=== PATIENT | male | born 1960 | race Caucasian/White ===

== ENCOUNTER 2020-04-23 11:18 | Inpatient (IN) | payer OTHER, SELFPAY ==
--- NOTE | ~2020-04-23 | US_ITS ---
EXAMINATION: US renal BI EXAM DATE: 04/25/2020 09:40 INDICATION: Acute kidney injury. TECHNIQUE: Multiple grayscale and Doppler images of the kidneys were obtained (by a technologist who performed the scan) and subsequently reviewed. Comparison is made to prior examination from 05/04/2019 . FINDINGS: Right kidney: There is normal contour and echogenicity. It measures 11.1 x 5.0 x 5.1 centimeters. T here are no focal renal lesions identified. There is no hydronephrosis. Left kidney: There is normal contour and echogenicity. It measures 11.5 x 4.6 x 7.1 centimeters. Th ere are no focal renal lesions identified. There is no hydronephrosis. Bladder unremarkable. IMPRESSION: 1. Sonographically unremarkable kidneys. Reviewed, dictated and finalized at location B. PLASTERER
--- NOTE | ~2020-04-23 | XR_ITS ---
EXAMINATION: XR foot RT min 3V DATE: 04/23/2020 12:16 INDICATION: Right foot cellulitis. Diabetes. TECHNIQUE: 4 views of right foot were obtained. COMPARISON: None. FINDINGS: Bone alignment is normal. No fracture. There is soft tissue loss at the tip of the second d igit. There may be exposed bone. There are no erosions of bone to suggest osteomyelitis. There is mil d osteoarthritis of first metatarsophalangeal joint and some of the interphalangeal joints. There are enthesophytes at the posterior and plantar aspects of calcaneal tuberosity. IMPRESSION: 1. No specific evidence of osteomyelitis. Reviewed, dictated and finalized at location A. TO INSPECTOR
[2020-04-23 11:29] VITALS: BP 125/82; PULSE 107; RESP 19; TEMP 36.6; O2SAT 100
--- NOTE | 2020-04-23 12:02 | ECG_ITS ---
Measurements Intervals [place] Rate: 109 P: 44 W[place]: 142 QRS: -2 QRSD: 94 T: 31 QT: 313 QTc: 422 Interpretive Statements SINUS TACHYCARDIA BASELINE ARTIFACT- I, II, III, AVR, AVL, AVF, V4 ABNORMAL ECG Electronically Signed On 04-23-2020 13:26:39 GAS ATTENDANT by Korey Crawford D.O.
--- NOTE | 2020-04-23 12:02 | ED.GENADULT ---
HPI - General Adult General Chief complaint: Wound/Laceration Stated complaint: Needs Antibiotics for Foot Time Seen by Provider: 04/23/20 11:34 Source: patient History of Present Illness HPI narrative: Patient is a 59 y/o male complaining of moderate right foot redness starting this morning. There is no alleviating or exacerbating factor. He has no fever or chill. He has no pain. He states that he has neuropathy and does not have sensation in that foot. Of note, he had dry gangrene of right 2nd toes for least last 2 month following toe nail removal. He follows with Dr. Neal (lan support specialist). He has also seen a vascular surgeon at [facility] for right leg bypass surgery schedule for 04/30/20. Related Data Home Medications Medication Instructions Recorded Confirmed aspirin 81 mg tablet,delayed 81 mg PO DAILY 04/25/19 04/24/20 release Xarelto 2.5 mg PO BID 04/24/20 04/24/20 amlodipine 5 mg PO DAILY 04/24/20 04/24/20 linagliptin-metformin [Jentadueto] 1 tablet PO BID 04/24/20 04/24/20 Allergies Allergy/AdvReac Type Severity Reaction Status Date / Time No Known Allergies Allergy Verified 02/27/20 09:15 Review of Systems Constitutional: Constitutional: Denies chills, Denies fever(s), Denies headache(s) and Denies weakness Eyes: Eyes: Denies blurry vision ENT: Denies headache(s) and Denies neck pain Cardiovascular: Cardiovascular: Denies chest pain and Denies dyspnea Respiratory: Respiratory: Denies cough and Denies dyspnea Gastrointestinal: Gastrointestinal: Denies abdominal pain, Denies diarrhea, Denies nausea and Denies vomiting Genitourinary: Genitourinary: Denies hematuria and Denies dysuria Musculoskeletal: Musculoskeletal: Denies back pain and Denies neck pain Integumentary/Breasts: Skin/Breast: Reports erythema (right foot) Neurologic: Denies headache(s) and Denies weakness [facility] Past Medical History Medical History (Updated 04/24/20 @ 03:52 by Gerard Grove MD) Diabetes mellitus PAD (peripheral artery disease) Thrombocytopenia Surgical History Surgical History (Updated 04/24/20 @ 03:53 by Gerard Grove MD) History of amputation of left lower extremity Family History Family History (Updated 04/24/20 @ 03:48 by Gerard Grove MD) Other Diabetes mellitus Social History Social History Smoking packs per day: 1 Smoking cigarettes per day: 20.0 Years smoked: 40 Smoking pack-years: 40.00 Smoking status: Former smoker Second hand tobacco smoke exposure: No Alcohol intake: never Substance use: never Gender identity (if verbalized by the patient): Male Sexual Orientation (if Verbalized by the Patient): Straight or Heterosexual Spiritual care concerns: No Exam Const: General: no acute distress and well developed Orientation/consciousness: oriented to person, oriented to place, oriented to time and patient oriented x3 HENMT: Head: normocephalic Ears: external ears normal General nose exam: Normal external nose present Eyes: General: appearance normal, both eyes and all related structures Conjunctivae: conjunctivae normal Neck: Neck: normal visual inspection and full ROM Chest: Chest palpation & inspection: normal inspection of the chest and no tenderness Resp: Effort & Inspection: normal respiratory effort Auscultation: clear to auscultation bilaterally Cardio: Rate: tachycardic Rhythm: regular rhythm GI: GI Palp: No abdominal tenderness and Yes Soft to palpation Skin: General skin exam: normal color, turgor normal and erythema (right foot) Wounds: wounds noted (open wound right heel, dry gangrene distal right 2nd toe) Neuro: General: oriented to person, oriented to place, oriented to time and patient oriented x3 Cognition (Neuro): normal cognition Extrem: General: normal to inspection, full ROM and no pedal edema Left lower extremity: lower leg Details: other (s/p left BKA) Psych: Appearance: priscilla
[2020-04-23 12:35] LABS: Basophils Absolute Auto 0.1 K/mm3 (0.0-0.1); Basophils Percent Auto 0.3 % (0.2-1.2); Eosinophils Absolute Auto 0.1 K/mm3 (0-0.3); Eosinophils Percent Auto 0.5 % (0-4.4); Hematocrit 26.6 % (42.0-52.0); Hemoglobin 8.3 g/dL (14.0-18.0); Immature Granulocyte Absolute 0.17 K/mm3 (0.00-0.031); Immature Granulocyte Percent A 0.7 % (0-0.5); Lymphocytes Absolute Auto 1.84 K/mm3 (0.9-3.2); Lymphocytes Percent Auto 7.6 % (18.3-44.2); Mean Corpuscular HGB Conc 31.2 g/dl (32-36); Mean Corpuscular Hemoglobin 24.6 pg (26-34); Mean Corpuscular Volume 78.7 fl (80-100); Monocytes Absolute Auto 1.5 K/mm3 (0.1-0.6); Monocytes Percent Auto 6.2 % (2.6-8.5); Neutrophils Absolute Auto 20.5 K/mm3 (1.3-6.7); Neutrophils Percent Auto 84.7 % (45.5-73.1); Platelet Count Result 309 k/mm3 (150-375); Red Blood Count 3.38 M/mm3 (4.6-6.20); Red Cell Distribution Width 15.1 % (11.5-14.5); White Blood Count 24.2 K/mm3 (4.5-10.0)
[2020-04-23 13:00] LABS: Alanine Aminotransferase 36 U/L (4-50); Albumin Level 3.8 g/dL (3.5-5.1); Alkaline Phosphatase 80 U/L (38-126); Anion Gap 9 mmol/L (8-16); Aspartate Amino Transferase 36 U/L (17-59); Bilirubin,Total 0.5 mg/dL (0.2-1.3); Blood Urea Nitrogen 25 mg/dL (9-20); Carbon Dioxide 24 mmol/L (22-30); Chloride 98 mmol/L (98-107); Estimated CRCL calculation 52 ml/min; Estimated Glomerular Filt Rate 44; Glucose 204 mg/dL (75-110); Potassium 4.9 mmol/L (3.4-5.0); Sodium 131 mmol/L (137-145)
[2020-04-23 13:15] LABS: CRP 18.8 mg/dL (<1.0)
[2020-04-23 13:24] LABS: Erythrocyte Sedimentation Rate > 140 mm/hr (0-20)
[2020-04-23 13:29] LABS: Lactic Acid Reflex 1.1 mmol/L (0.7-2.1)
[2020-04-23 14:00] VITALS: BP 158/75; PULSE 81; RESP 18; O2SAT 100
[2020-04-23] MEDS: SODIUM CHLORIDE 0.9% IV 1,000 ML 999 ML IV CONT (16:39)
[2020-04-23 16:47] VITALS: BP 135/84; PULSE 79; RESP 18; O2SAT 97
[2020-04-23 18:41] VITALS: BP 105/62; PULSE 97; RESP 22; O2SAT 100
--- NOTE | 2020-04-23 23:29 | PM.IMHP ---
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 He has mild sensation of his right foot because of neuropathy and denies any signficant pain. He also denies any fever, chills, nausea, vomiting, chest pain, cough, shortness of breath, abdominal pain, dysuria, hematuria, or diarrhea. He believes that the dry gangrene started after his sledger clipped his toe nails about 6 months ago. He denies any worsening of his necrotic toe. The patient is established with vascular surgery at [facility]. Today in the ER routine labs demonstrated a significant leukocytosis w/ a left shift as well as acute renal failure. ER provider has contacted [facility] vascular surgery who has accepted the patient for transfer to their hospital although there are no beds available at this time. I urged the ER provider to try to transfer the patient to another hospital that offers vascular surgery in the event that he needs an intervention as we do not have vascular surgery and the patient has verbalized that they do not want to go to any other hospital other than [facility]. I have verbalized to the patient that he may suffer compromise or even lose his right foot as a vascular complication of not having vascular surgery available and the patient has verbalized his understanding and will only accept being transferred to [facility] He was treated with IV fluids and antibiotics in the ER. He has no other complaints. Review of Systems Review of Systems: All systems reviewed & are unremarkable except as noted in HPI and below PMFSH Past Medical History Medical History (Updated 04/24/20 @ 03:52 by Gerard Grove MD) Diabetes mellitus PAD (peripheral artery disease) Thrombocytopenia Surgical History Surgical History (Updated 04/24/20 @ 03:53 by Gerard Grove MD) History of amputation of left lower extremity Family History Family History (Updated 04/24/20 @ 03:48 by Gerard Grove MD) Other Diabetes mellitus Social History Social History Smoking packs per day: 1 Smoking cigarettes per day: 20.0 Years smoked: 40 Smoking pack-years: 40.00 Smoking status: Former smoker Second hand tobacco smoke exposure: No Alcohol intake: never Substance use: never Gender identity (if verbalized by the patient): Male Sexual Orientation (if Verbalized by the Patient): Straight or Heterosexual Spiritual care concerns: No Meds Home Medications and Allergies Home Medications Medication Instructions Recorded Confirmed Type aspirin 81 mg tablet,delayed 81 mg PO DAILY 04/25/19 04/24/20 History release rosuvastatin 40 mg tablet 40 mg PO DAILY #90 tablet 09/13/19 04/24/20 Rx lisinopril 40 mg tablet 40 mg PO DAILY #90 tablet 01/17/20 04/24/20 Rx Xarelto 2.5 mg PO BID 04/24/20 04/24/20 History amlodipine 5 mg PO DAILY 04/24/20 04/24/20 History linagliptin-metformin [Jentadueto] 1 tablet PO BID 04/24/20 04/24/20 History Allergies Allergy/AdvReac Type Severity Reaction Status Date / Time No Known Allergies Allergy Verified 02/27/20 09:15 Vital Signs Vital Signs - 24 hr 04/23/20 11:29 04/23/20 14:00 04/23/20 16:47 Temperature 36.6 C Pulse Rate 107 H 81 79 Respiratory Rate 19 18 18 Blood Pressure 125/82 158/75 H 135/84 Pulse Oximetry 100 100 97 04/23/20 18:41 Temperature Pulse Rate 97 Respiratory Rate 22 H Blood Pressure 105/62 Pulse Oximetry 100 Exam Const: General: cooperative, no acute distress, alert, awake and ill appearing chronically Nutritional Appearance: well nourished Orientation/consciousness: patient oriented x3 HENMT: Head: normal to inspection General nose exam: No
[2020-04-23 23:56] VITALS: BP 137/63; PULSE 84; RESP 18; O2SAT 97
[2020-04-24] VITALS (9 sets, daily range): BP systolic 92–137; BP diastolic 54–64; PULSE 84–100; RESP 16–20; TEMP 36.6–37.8; O2SAT 97–100; BMI 24.7
[2020-04-24] MEDS: SODIUM CHLORIDE 0.9% IV 1,000 ML 125 ML IV CONT ×3 (00:29→19:35)
--- NOTE | 2020-04-24 01:38 | PC.NURSE ---
This patient, Jamar Foley Jr., was admitted to Medical Room 240-. Patient/family oriented to hospital policies and general routines including ID bracelet, bed and alarms, visiting hours, pain management, procedures, bathroom and other care routines, personal items, smoking policy, room service/diet, and visiting hours. Information on how to activate the Rapid Response Team has been discussed. Patient/Family are encouraged to report perceived risks to care and to ask questions if they do not understand what they are told or what they should do.
[2020-04-24 05:28] LABS: Basophils Absolute Auto 0.1 K/mm3 (0.0-0.1); Basophils Percent Auto 0.4 % (0.2-1.2); Eosinophils Absolute Auto 0.4 K/mm3 (0-0.3); Eosinophils Percent Auto 2.2 % (0-4.4); Hematocrit 22.5 % (42.0-52.0); Immature Granulocyte Absolute 0.08 K/mm3 (0.00-0.031); Immature Granulocyte Percent A 0.5 % (0-0.5); Lymphocytes Absolute Auto 2.15 K/mm3 (0.9-3.2); Lymphocytes Percent Auto 12.2 % (18.3-44.2); Mean Corpuscular HGB Conc 31.1 g/dl (32-36); Mean Corpuscular Hemoglobin 24.5 pg (26-34); Mean Corpuscular Volume 78.7 fl (80-100); Mean Platelet Volume 9.2 fl (7.4-10.4); Monocytes Absolute Auto 1.3 K/mm3 (0.1-0.6); Monocytes Percent Auto 7.1 % (2.6-8.5); Neutrophils Absolute Auto 13.7 K/mm3 (1.3-6.7); Neutrophils Percent Auto 77.6 % (45.5-73.1); Platelet Count Result 283 k/mm3 (150-375); Red Blood Count 2.86 M/mm3 (4.6-6.20); Red Cell Distribution Width 15.3 % (11.5-14.5); White Blood Count 17.6 K/mm3 (4.5-10.0)
[2020-04-24 05:47] LABS: Anion Gap 6 mmol/L (8-16); Blood Urea Nitrogen 20 mg/dL (9-20); Calcium 8.2 mg/dL (8.4-10.2); Carbon Dioxide 26 mmol/L (22-30); Chloride 102 mmol/L (98-107); Estimated CRCL calculation 49 ml/min; Estimated Glomerular Filt Rate 41; Glucose 159 mg/dL (75-110); Potassium 4.4 mmol/L (3.4-5.0); Sodium 134 mmol/L (137-145)
--- NOTE | 2020-04-24 06:40 | PC.NURSE ---
Critical H&H attempted to call Dr. Grove , he was unable to take phone call and message left with ICU charge.
[2020-04-24 07:28] LABS: Glucose Point of Care 165 (65-105)
[2020-04-24] MEDS: amLODIPine BESYLATE 5 MG TABLET PO (09:17)
[2020-04-24] MEDS: RIVAROXABAN 2.5 MG TABLET PO ×2 (09:18→17:48)
[2020-04-24] MEDS: ROSUVASTATIN 10 MG TABLET 40 MG PO (09:18)
[2020-04-24 09:30] LABS: Hematocrit 24.2 % (42.0-52.0); Hemoglobin 7.6 g/dL (14.0-18.0)
[2020-04-24 09:52] LABS: Iron 12 ug/dL (49-181)
[2020-04-24 10:01] LABS: Percent Iron Saturation 5 % (20-50)
--- NOTE | 2020-04-24 10:40 | P.PNIM_ITS ---
Progress Note: A&P Assessment and Plan (1) Cellulitis of foot, right: Code(s): L03.115 - Cellulitis of right lower limb Status: Acute Assessment and Plan: Right foot erythematous, edematous, and warm. ESR and CRP elevated. Significant leukocytosis slowly improving. Patient reports fever at home with T-max 100.1?, but has remained afebrile here. * He has been accepted for transfer to [facility] vascular surgery service and is awaiting a bed. * Continue Zosyn * Continue fluids * Appreciate wound care consult (2) Sepsis: Qualifiers: Sepsis acute organ dysfunction status: unspecified Sepsis type: sepsis due to unspecified organism Qualified Code(s): A41.9 - Sepsis, unspecified organism Code(s): A41.9 - Sepsis, unspecified organism Status: Acute Assessment and Plan: Present on admission and supported by leukocytosis and tachycardia. Source of sepsis appears to be cellulitis. * Continue IV antibiotics and IV fluids as above * Blood cultures pending * Monitor acid-base status and vital signs closely. Monitor urine output. (3) Dry gangrene: Code(s): I96 - Gangrene, not elsewhere classified Status: Chronic Assessment and Plan: Right 2nd toe is dry, shriveled, and black. He is established with vascular surgeon Dr. Kaushal Madrigal. He has scheduled vein transplant on 04/30/20 at [facility]. Foot x-ray shows loss of soft tissue at the tip of the 2nd digit with pos sibly exposed bone but no evidence of osteomyelitis. * He has been accepted and is awaiting placement at [facility]. Patient is aware that we do not have vascular surgery at this facility. He did not wish to consider transfer to another facility that offers vascular surgery. Risks including loss of limb discussed with patient and he verbalized understanding. I have placed a call to Dr. Kaushal Madrigal today to discuss case and am awaiting return call. (4) Leukocytosis: Code(s): D72.829 - Elevated white blood cell count, unspecified Status: Acute Assessment and Plan: Secondary to cellulitis. Slight improvement today. * Monitor CBC daily (5) Chronic anemia: Code(s): D64.9 - Anemia, unspecified Status: Chronic Assessment and Plan: Iron panel is consistent with anemia of chronic disease. He had a sharp decline in Hgb overnight with initial reading of 7.0 felt to be erroneous and improvem ent upon repeat, though still quite decreased at 7.6. Possibly dilutional. B12 and folate wnl. * Administer IV Venofer x1 dose as iron stores are very low. * Check IFOB * Monitor H&H closely. Repeat this afternoon. Transfuse as needed with Hgb threshold <7.0 (6) Acute renal failure: Code(s): N17.9 - Acute kidney failure, unspecified Status: Acute Assessment and Plan: Creatinine elevated from baseline. Etiology is unclear at this point. Pre-renal suspected although he did not have much improvement with IV fluids. Possibly ATN from infection. * Monitor renal function closely and avoid nephrotoxic agents. * Continue gentle IV fluids. * Consider renal US if no further improvement. (7) Diabetes mellitus: Code(s): E11.9 - Type 2 diabetes mellitus without complications Status: Chronic Assessment and Plan: A1c was 5.8 in September 2019. Blood sugars have been fairly well controlled today. * Continue accuchecks ACHS, SSI Coverage, and hypoglycemic protocol. * Hold oral hypoglycmic agents and lisinopril secondary to renal failure. (8) Fidelia
--- NOTE | 2020-04-24 10:40 | PM.IMPN ---
Progress Note: A&P Assessment and Plan (1) Cellulitis of foot, right: Code(s): L03.115 - Cellulitis of right lower limb Status: Acute Assessment and Plan: Right foot erythematous, edematous, and warm. ESR and CRP elevated. Significant leukocytosis slowly improving. Patient reports fever at home with T-max 100.1?, but has remained afebrile here. He has been accepted for transfer to [facility] vascular surgery service and is awaiting a bed. Continue Zosyn Continue fluids Appreciate wound care consult (2) Sepsis: Qualifiers: Sepsis acute organ dysfunction status: unspecified Sepsis type: sepsis due to unspecified organism Qualified Code(s): A41.9 - Sepsis, unspecified organism Code(s): A41.9 - Sepsis, unspecified organism Status: Acute Assessment and Plan: Present on admission and supported by leukocytosis and tachycardia. Source of sepsis appears to be cellulitis. Continue IV antibiotics and IV fluids as above Blood cultures pending Monitor acid-base status and vital signs closely. Monitor urine output. (3) Dry gangrene: Code(s): I96 - Gangrene, not elsewhere classified Status: Chronic Assessment and Plan: Right 2nd toe is dry, shriveled, and black. He is established with vascular surgeon Dr. Kaushal Madrigal. He has scheduled vein transplant on 04/30/20 at [facility]. Foot x-ray shows loss of soft tissue at the tip of the 2nd digit with possibly exposed bone but no evidence of osteomyelitis. He has been accepted and is awaiting placement at [facility]. Patient is aware that we do not have vascular surgery at this facility. He did not wish to consider transfer to another facility that offers vascular surgery. Risks including loss of limb discussed with patient and he verbalized understanding. I have placed a call to Dr. Kaushal Madrigal today to discuss case and am awaiting return call. (4) Leukocytosis: Code(s): D72.829 - Elevated white blood cell count, unspecified Status: Acute Assessment and Plan: Secondary to cellulitis. Slight improvement today. Monitor CBC daily (5) Chronic anemia: Code(s): D64.9 - Anemia, unspecified Status: Chronic Assessment and Plan: Iron panel is consistent with anemia of chronic disease. He had a sharp decline in Hgb overnight with initial reading of 7.0 felt to be erroneous and improvement upon repeat, though still quite decreased at 7.6. Possibly dilutional. B12 and folate wnl. Administer IV Venofer x1 dose as iron stores are very low. Check IFOB Monitor H&H closely. Repeat this afternoon. Transfuse as needed with Hgb threshold <7.0 (6) Acute renal failure: Code(s): N17.9 - Acute kidney failure, unspecified Status: Acute Assessment and Plan: Creatinine elevated from baseline. Etiology is unclear at this point. Pre-renal suspected although he did not have much improvement with IV fluids. Possibly ATN from infection. Monitor renal function closely and avoid nephrotoxic agents. Continue gentle IV fluids. Consider renal US if no further improvement. (7) Diabetes mellitus: Code(s): E11.9 - Type 2 diabetes mellitus without complications Status: Chronic Assessment and Plan: A1c was 5.8 in September 2019. Blood sugars have been fairly well controlled today. Continue accuchecks ACHS, SSI Coverage, and hypoglycemic protocol. Hold oral hypoglycmic agents and lisinopril secondary to renal failure. (8) Essential hypertension: Code(s): I10 - Essential (primary) hypertension Status: Chronic Assessment and Plan: Blood pressures evaluated today and have been on the low end of normal. Last BP 128/61. Lisinopril on hold as above. Continue amlodipine. Hold if BP is soft. (9) History of below knee amputation: Qualifiers: Laterality: left Qualified Code(s): Z89.512 - Acquired absence of left le
[2020-04-24 10:49] LABS: Folic Acid 12.8 ng/mL (2.76->20)
[2020-04-24] MEDS: IRON SUCROSE COMPLEX 200 MG in SODIUM CHLORIDE 0.9% IV 50 ML 120 MG IVPB (11:19)
[2020-04-24 12:09] LABS: Glucose Point of Care 192 (65-105)
[2020-04-24 16:11] LABS: Hematocrit 23.8 % (42.0-52.0); Hemoglobin 7.4 g/dL (14.0-18.0)
[2020-04-24 17:35] LABS: Glucose Point of Care 172 (65-105)
[2020-04-24] MEDS: SILVERGEL (ELTA) 45 ML 1 APPLIC TOPICAL (17:48)
[2020-04-25] VITALS (7 sets, daily range): BP systolic 109–141; BP diastolic 53–73; PULSE 92–104; RESP 16–20; TEMP 36.8–37.6; O2SAT 97–100
[2020-04-25 01:03] LABS: Glucose Point of Care 189 (65-105)
--- NOTE | 2020-04-25 02:24 | PC.NURSE ---
[facility] called at 21:15 to inform us they have no beds available at this time.
[2020-04-25] MEDS: SODIUM CHLORIDE 0.9% IV 1,000 ML 125 ML IV CONT ×2 (05:00→13:03)
[2020-04-25 05:38] LABS: Basophils Absolute Auto 0.1 K/mm3 (0.0-0.1); Basophils Percent Auto 0.3 % (0.2-1.2); Eosinophils Absolute Auto 0.5 K/mm3 (0-0.3); Eosinophils Percent Auto 3.5 % (0-4.4); Hematocrit 23.8 % (42.0-52.0); Hemoglobin 7.4 g/dL (14.0-18.0); Immature Granulocyte Absolute 0.07 K/mm3 (0.00-0.031); Immature Granulocyte Percent A 0.5 % (0-0.5); Lymphocytes Absolute Auto 1.92 K/mm3 (0.9-3.2); Lymphocytes Percent Auto 13.2 % (18.3-44.2); Mean Corpuscular HGB Conc 31.1 g/dl (32-36); Mean Corpuscular Hemoglobin 24.3 pg (26-34); Mean Corpuscular Volume 78.3 fl (80-100); Mean Platelet Volume 9.4 fl (7.4-10.4); Monocytes Percent Auto 6.5 % (2.6-8.5); Neutrophils Absolute Auto 11.1 K/mm3 (1.3-6.7); Platelet Count Result 298 k/mm3 (150-375); Red Blood Count 3.04 M/mm3 (4.6-6.20); Red Cell Distribution Width 15.4 % (11.5-14.5); White Blood Count 14.6 K/mm3 (4.5-10.0)
[2020-04-25 06:01] LABS: Anion Gap 8 mmol/L (8-16); Blood Urea Nitrogen 16 mg/dL (9-20); Carbon Dioxide 24 mmol/L (22-30); Chloride 107 mmol/L (98-107); Estimated CRCL calculation 52 ml/min; Estimated Glomerular Filt Rate 44; Glucose 165 mg/dL (75-110); Potassium 4.1 mmol/L (3.4-5.0); Sodium 139 mmol/L (137-145)
[2020-04-25 07:36] LABS: Glucose Point of Care 171 (65-105)
[2020-04-25] MEDS: SILVERGEL (ELTA) 45 ML 1 APPLIC TOPICAL (08:10)
[2020-04-25] MEDS: RIVAROXABAN 2.5 MG TABLET PO ×2 (08:10→16:30)
[2020-04-25] MEDS: ROSUVASTATIN 10 MG TABLET 40 MG PO (08:10)
[2020-04-25 11:34] LABS: Glucose Point of Care 176 (65-105)
--- NOTE | 2020-04-25 11:52 | PM.IMPN ---
Subjective Date/time seen: 04/25/20 11:52 Interval history: Date of service: 04/25/2020 Jamar Foley is a 59-year-old male with a history of peripheral artery disease, diabetes mellitus, and known dry gangrene of the right 2nd toe established with vascular surgery at [facility] and awaiting surgery on 04/30/2020 who is seen in follow-up for right foot cellulitis. He has been accepted for transfer to [facility] pending bed availability. Is feeling well today. He denies any pain in his foot, although he does have very diminished sensation. Feels that the redness has resolved and is no longer swollen. He denies subjective fevers, chills, sweats, nausea, vomiting. His appetite is good. Last bowel movement 3 days ago. No urinary symptoms. No shortness of breath, cough, chest pain, palpitations. He has not additional concerns at this time. Review of Systems Review of Systems: All systems reviewed & are unremarkable except as noted in HPI and below Exam Narrative: Exam Narrative: Mr. Foley is a well-nourished 59-year-old male who is lying supine in bed. He appears comfortable and is in NARD. HR 95, BP 109/73, RR 20, T 99.2?, 98% on room air Neuro: awake, alert and oriented x4, speech clear, no focal neuro deficits noted HEENMT: normocephalic, atraumatic, EOMI, sclerae anicteric, moist oral mucosa, tongue midline, nares patent Neck: supple, no lymphadenopathy Respiratory: clear to auscultation bilaterally, nonlabored breathing Cardio: regular rate, regular rhythm with S1-S2 Abdomen: nondistended, normoactive bowel sounds, soft, nontender to palpation, no rigidity or guarding Extremities: left BKA with stump intact, dorsum of right foot is minimally erythematous, no edema or increased warmth to palpation, right 2nd toe is black and dry, DP pulse palpable Skin: ulcer on right heel Psych: appropriate mood and affect, judgment and insight intact Objective Data Vital Signs Vital Signs: Vital Signs - 24 hr 04/24/20 14:00 04/24/20 18:00 04/24/20 20:00 Temperature 99.1 F 99.7 F H 100.1 F H Pulse Rate 88 90 92 Respiratory Rate 16 16 20 Blood Pressure 92/58 L 115/58 L 110/59 L Pulse Oximetry 100 99 98 04/24/20 22:00 04/25/20 00:00 04/25/20 04:00 Temperature 100.0 F H 99.7 F H 99.2 F Pulse Rate 92 100 95 Respiratory Rate 20 20 20 Blood Pressure 110/59 L 120/57 L 109/73 Pulse Oximetry 98 97 98 04/25/20 05:53 04/25/20 10:00 Temperature 99.2 F 98.7 F Pulse Rate 95 94 Respiratory Rate 20 18 Blood Pressure 109/73 117/70 Pulse Oximetry 98 100 Intake/Output Intake/Output: Intake & Output 04/22/20 04/23/20 04/24/20 04/25/20 23:59 23:59 23:59 23:59 Intake Total 1550 3980 1680 Output Total 2550 1450 Balance 1550 1430 230 Meds/Results Medications: Active Medications Generic Name Dose Route Start Last Admin Trade Name Freq PRN Reason Stop Dose Admin Acetaminophen 650 mg 04/23/20 23:48 Acetaminophen 325 Mg Tablet PO Q4H PRN Mild Pain (1-3) or Fever Amlodipine Besylate 5 mg 04/24/20 09:00 04/25/20 11:48 Amlodipine Besylate 5 Mg Tablet PO Not Given DAILY DEANNA Dextrose 12.5 gm 04/23/20 23:49 Dextrose 50% 25 Gm/50 Ml Syringe IV PUSH PRN PRN Hypoglycemia Protocol Glucagon 1 mg 04/23/20 23:49 Glucagon For Inj 1 Mg Vial IM PRN PRN Hypoglycemia Protocol Glucose 15 gm 04/23/20 23:49 Glucose Oral Gel 15 Gm Of Glucse In 37.5 Gm Tube PO PRN PRN Hypoglycemia Protocol Piperacillin/Tazobactam/Dextrose 3.375 gm in 50 mls @ 100 mls/hr 04/23/20 22:35 04/25/20 06:33 Zosyn 3.375 Gm/D5w 50ml Pm IVPB Infused Q8HR DEANNA Infusion Sodium Chloride 1,000 mls @ 125 mls/hr 04/23/20 21:00 04/25/20 05:00 Normal Saline Iv IV CONT 125 mls/hr .Q8H DEANNA Administration Dextrose 1,000 mls @ 100 mls/hr 04/23/20 23:49 Dextrose 5% 1,000 Ml IVPB PRN PRN Hypoglycemia Protocol Insulin Aspart 3 - 6 units 04/24/20 08:00 1
--- NOTE | 2020-04-25 14:01 | PM.IMPN ---
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 He is established with vascular surgeon Dr. Kaushal Madrigal. He has scheduled femoral-popliteal bypass and right femoral endarterectomy on 04/30/20 at [facility]. Foot x-ray shows loss of soft tissue at the tip of the 2nd digit with possibly exposed bone but no evidence of osteomyelitis. He has been accepted and is awaiting placement at [facility]. Patient is aware that we do not have vascular surgery at this facility. He did not wish to consider transfer to another facility that offers vascular surgery. Risks including loss of limb discussed with patient and he verbalized understanding. Discussed case with BENJA Black for Dr. Kaushal Madrigal who recommends proceeding with transfer upon bed availability (however notes that patient is not at top of list for beds). Recommends continuing broad spectrum antibiotics and strict glycemic control. Recommends contacting on-call vascular surgery resident on 04/29 if patient is still waiting for bed at that time. Betadine applied to toe BID (2) Cellulitis of foot, right: Code(s): L03.115 - Cellulitis of right lower limb Status: Acute Assessment and Plan: Right foot erythematous, edematous, and warm on presentation. ESR and CRP elevated. Significant leukocytosis slowly improving. Febrile with Tmax 100.1. He has been accepted for transfer to [facility] vascular surgery service and is awaiting a bed. Continue Zosyn Continue gentle fluids Appreciate wound care consult (3) Sepsis: Qualifiers: Sepsis acute organ dysfunction status: unspecified Sepsis type: sepsis due to unspecified organism Qualified Code(s): A41.9 - Sepsis, unspecified organism Code(s): A41.9 - Sepsis, unspecified organism Status: Acute Assessment and Plan: Present on admission and supported by leukocytosis, tachycardia, and fever. Source of sepsis appears to be cellulitis. Vital signs stable. Leukocytosis improving. Continue IV antibiotics and IV fluids as above Blood cultures pending. Preliminary cultures with NGTD. (4) Leukocytosis: Code(s): D72.829 - Elevated white blood cell count, unspecified Status: Acute Assessment and Plan: Secondary to cellulitis. Slight improvement today. Monitor CBC daily (5) Chronic anemia: Code(s): D64.9 - Anemia, unspecified Status: Chronic Assessment and Plan: Iron panel is consistent with anemia of chronic disease. He had a sharp decline in Hgb on 04/24 (although initial reading 7.0 felt to be erroneous). H&H is low but stable. B12 and folate wnl. Monitor H&H closely. Repeat this evening. Transfuse as needed with Hgb threshold <7.0 IFOB is pending (6) Acute renal failure: Code(s): N17.9 - Acute kidney failure, unspecified Status: Acute Assessment and Plan: Creatinine elevated from baseline. Etiology is unclear at this point. Pre-renal considered although he did not have much improvement with IV fluids. Possibly ATN from infection. Renal US unremarkable. No voiding issues Monitor renal function closely and avoid nephrotoxic agents. Continue gentle IV fluids. Bladder scan to evaluate for urinary retention (7) Diabetes mellitus: Code(s): E11.9 - Type 2 diabetes mellitus without complications Status: Chronic Assessment and Plan: A1c was 5.8 in September 2019. Blood sugars have been fairly well controlled mostly in the 170s. Strict glycemic control needed. Continue accuchecks ACHS, high dose SSI Coverage, and hypoglycemic protocol. Begin Lantus Check updated A1c Hold oral hypoglycmic agents and lisinopril secondary to renal failure. (8) Essential hypertension: Code(s): I10 - Essential (primary) hypertension Status: Chronic
[2020-04-25 15:36] LABS: Hematocrit 25.7 % (42.0-52.0); Hemoglobin 8.1 g/dL (14.0-18.0)
[2020-04-25 17:25] LABS: Glucose Point of Care 175 (65-105)
[2020-04-25] MEDS: INSULIN GLARGINE (*BKC) 100 UNITS/ML 15 UNITS SUB-Q (20:28)
[2020-04-25 20:35] LABS: Glucose Point of Care 221 (65-105)
[2020-04-26] MEDS: SODIUM CHLORIDE 0.9% IV 1,000 ML 75 ML IV CONT ×2 (00:51→16:21)
[2020-04-26 02:00] VITALS: BP 114/61; PULSE 95; RESP 20; TEMP 36.8; O2SAT 93
[2020-04-26 05:00] LABS: Hematocrit 23.3 % (42.0-52.0); Hemoglobin 7.3 g/dL (14.0-18.0); Mean Corpuscular HGB Conc 31.3 g/dl (32-36); Mean Corpuscular Hemoglobin 24.6 pg (26-34); Mean Corpuscular Volume 78.5 fl (80-100); Mean Platelet Volume 9.1 fl (7.4-10.4); Platelet Count Result 308 k/mm3 (150-375); Red Blood Count 2.97 M/mm3 (4.6-6.20); Red Cell Distribution Width 15.3 % (11.5-14.5)
[2020-04-26 05:24] LABS: Anion Gap 9 mmol/L (8-16); Blood Urea Nitrogen 13 mg/dL (9-20); Calcium 8.4 mg/dL (8.4-10.2); Carbon Dioxide 25 mmol/L (22-30); Chloride 103 mmol/L (98-107); Estimated CRCL calculation 52 ml/min; Estimated Glomerular Filt Rate 44; Glucose 162 mg/dL (75-110); Potassium 4.1 mmol/L (3.4-5.0); Sodium 137 mmol/L (137-145)
[2020-04-26 05:54] VITALS: BP 125/68; PULSE 86; RESP 20; TEMP 37.1; O2SAT 98
[2020-04-26 07:57] LABS: Glucose Point of Care 170 (65-105)
[2020-04-26 10:00] VITALS: BP 114/57; PULSE 83; RESP 18; TEMP 36.7; O2SAT 99
--- NOTE | 2020-04-26 10:17 | PM.IMPN ---
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 He is established with vascular surgeon Dr. Kaushal Madrigal. He has scheduled femoral-popliteal bypass and right femoral endarterectomy on 04/30/20 at [facility]. Foot x-ray shows loss of soft tissue at the tip of the 2nd digit with possibly exposed bone but no evidence of osteomyelitis. He has been accepted and is awaiting placement at [facility]. Patient is aware that we do not have vascular surgery at this facility. He did not wish to consider transfer to another facility that offers vascular surgery. Risks including loss of limb discussed with patient and he verbalized understanding. Discussed case with BENJA Black for Dr. Kaushal Madrigal who recommends proceeding with transfer upon bed availability (however notes that patient is not at top of list for beds). Recommends continuing broad spectrum antibiotics and strict glycemic control. Recommends contacting on-call vascular surgery resident on 04/28 if patient is still waiting for bed at that time. Plan to hold Xarelto tomorrow night (04/27) in anticipation for surgery Betadine applied to toe BID (2) Cellulitis of foot, right: Code(s): L03.115 - Cellulitis of right lower limb Status: Acute Assessment and Plan: Right foot erythematous, edematous, and warm on presentation. ESR and CRP elevated. Slight increase in leukocytosis today. Intermittent low grade fevers with Tmax 100.1. He has been accepted for transfer to [facility] vascular surgery service and is awaiting a bed. Continue Zosyn Continue gentle IV fluids Appreciate wound care consult (3) Sepsis: Qualifiers: Sepsis acute organ dysfunction status: unspecified Sepsis type: sepsis due to unspecified organism Qualified Code(s): A41.9 - Sepsis, unspecified organism Code(s): A41.9 - Sepsis, unspecified organism Status: Acute Assessment and Plan: Present on admission and supported by leukocytosis, tachycardia, and fever. Source of sepsis appears to be cellulitis. Vital signs stable. Continue IV antibiotics and IV fluids as above Blood cultures pending. 1/2 bottles with coag negative s. aureus after >48 hours. Suspect this is secondary to contamination. Will closely monitor. (4) Leukocytosis: Code(s): D72.829 - Elevated white blood cell count, unspecified Status: Acute Assessment and Plan: Secondary to cellulitis. WBC 24k at presentation with slow improvement. Monitor CBC daily (5) Chronic anemia: Code(s): D64.9 - Anemia, unspecified Status: Chronic Assessment and Plan: Iron panel is consistent with anemia of chronic disease. He had a sharp decline in Hgb on 04/24 (although initial reading 7.0 felt to be erroneous). H&H is low but stable. B12 and folate wnl. Monitor H&H closely. Repeat this evening. Transfuse as needed with Hgb threshold <7.0 IFOB is pending (6) Acute renal failure: Code(s): N17.9 - Acute kidney failure, unspecified Status: Acute Assessment and Plan: Creatinine elevated from baseline. Etiology is unclear at this point though I suspect patient has underlying CKD in light of uncontrolled DM. Pre-renal considered although he did not have much improvement with IV fluids. Possibly ATN from infection. Renal US unremarkable. No voiding issues. Monitor renal function closely and avoid nephrotoxic agents. Continue gentle IV fluids. Hold oral hypoglycmic agents and lisinopril secondary to renal failure. (7) Diabetes mellitus: Code(s): E11.9 - Type 2 diabetes mellitus without complications Status: Chronic Assessment and Plan: A1c was 5.8 in September 2019. Blood sugars have been slightly elevated mostly in the 170s. Strict glycemic control needed. AM glucose 170 today.
[2020-04-26] MEDS: RIVAROXABAN 2.5 MG TABLET PO ×2 (10:31→16:23)
[2020-04-26] MEDS: ROSUVASTATIN 10 MG TABLET 40 MG PO (10:31)
[2020-04-26] MEDS: amLODIPine BESYLATE 5 MG TABLET PO (10:32)
[2020-04-26] MEDS: SILVERGEL (ELTA) 45 ML 1 APPLIC TOPICAL (10:32)
[2020-04-26] MEDS: polyethylene glycoL 3350 17 GM POWD.PACK PO (10:58)
[2020-04-26 11:27] LABS: Glucose Point of Care 149 (65-105)
[2020-04-26 14:00] VITALS: BP 114/54; PULSE 87; RESP 16; TEMP 36.9; O2SAT 99
[2020-04-26 17:15] LABS: Glucose Point of Care 223 (65-105)
[2020-04-26] MEDS: INSULIN ASPART (*BKC) 100 UNITS/ML SUB-Q (17:20)
[2020-04-26 18:00] VITALS: BP 116/51; PULSE 85; RESP 18; TEMP 38; O2SAT 100
--- NOTE | 2020-04-27 06:18 | PM.CNGS ---
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 Patient transferred before he was able to be seen. History of Present Illness Consult details Consult date: 04/27/20 [facility] Past Medical History Medical History (Updated 04/24/20 @ 03:52 by Gerard Grove MD) Diabetes mellitus PAD (peripheral artery disease) Thrombocytopenia Surgical History Surgical History (Updated 04/24/20 @ 03:53 by Gerard Grove MD) History of amputation of left lower extremity Family History Family History (Updated 04/24/20 @ 03:48 by Gerard Grove MD) Other Diabetes mellitus Social History Social History Smoking packs per day: 1 Smoking cigarettes per day: 20.0 Years smoked: 40 Smoking pack-years: 40.00 Smoking status: Former smoker Second hand tobacco smoke exposure: No Alcohol intake: never Substance use: never Gender identity (if verbalized by the patient): Male Sexual Orientation (if Verbalized by the Patient): Straight or Heterosexual Spiritual care concerns: No Meds Home Medications and Allergies Home Medications Medication Instructions Recorded Confirmed Type aspirin 81 mg tablet,delayed 81 mg PO DAILY 04/25/19 04/24/20 History release rosuvastatin 40 mg tablet 40 mg PO DAILY #90 tablet 09/13/19 04/24/20 Rx lisinopril 40 mg tablet 40 mg PO DAILY #90 tablet 01/17/20 04/24/20 Rx Xarelto 2.5 mg PO BID 04/24/20 04/24/20 History amlodipine 5 mg PO DAILY 04/24/20 04/24/20 History linagliptin-metformin [Jentadueto] 1 tablet PO BID 04/24/20 04/24/20 History Allergies Allergy/AdvReac Type Severity Reaction Status Date / Time No Known Allergies Allergy Verified 02/27/20 09:15 Vital Signs Vital Signs - 24 hr 04/26/20 10:00 04/26/20 14:00 04/26/20 18:00 Temperature 36.7 C 36.9 C 38.0 C H Pulse Rate 83 87 85 Respiratory Rate 18 16 18 Blood Pressure 114/57 L 114/54 L 116/51 L Pulse Oximetry 99 99 100 Results Labs Result diagrams: 04/26/20 04:36 04/26/20 04:36 Labs: Abnormal lab results 04/26/20 04/26/20 04/26/20 Range/Units 07:54 11:23 17:02 POC Capillary Glucose 170 H 149 H 223 H (65-105) mg/dl All other labs normal. Quality VTE Prophylaxis VTE prophylaxis: pharmacologic ordered
--- NOTE | 2020-04-27 08:16 | PM.TDS ---
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 He is established with vascular surgeon Dr. Kaushal Madrigal. He has scheduled femoral-popliteal bypass and right femoral endarterectomy on 04/30/20 at [facility]. Foot x-ray shows loss of soft tissue at the tip of the 2nd digit with possibly exposed bone but no evidence of osteomyelitis. He has been accepted for transfer to [facility] hospitalist service and will be evaluated by vascular surgery. Discussed case with BENJA Black for Dr. Kaushal Madrigal on 04/25. Recommended continuing broad spectrum antibiotics, betadine application to toe bid, and strict glycemic control. Xarelto placed on hold 04/26 at midnight to allow for holding anticoagulation 3 days prior to procedure. (2) Cellulitis of foot, right: Code(s): L03.115 - Cellulitis of right lower limb Status: Acute Assessment and Plan: Right foot erythematous, edematous, and warm on presentation. ESR and CRP elevated. Slight increase in leukocytosis with intermittent low grade fevers with Tmax 100.4. Continue with treatment at [facility]. Continue Zosyn, started 04/23. Gentle IV fluids Patient was seen in consultation by wound care team (3) Sepsis: Qualifiers: Sepsis acute organ dysfunction status: unspecified Sepsis type: sepsis due to unspecified organism Qualified Code(s): A41.9 - Sepsis, unspecified organism Code(s): A41.9 - Sepsis, unspecified organism Status: Acute Assessment and Plan: Present on admission and supported by leukocytosis, tachycardia, and fever. Source of sepsis appears to be cellulitis. Vital signs stable. Continue IV antibiotics and IV fluids as above 1/2 blood culture bottles with coag negative s. aureus after >48 hours. Suspect this is secondary to contamination. Discussed case with accepting physician at [facility] who requested repeat cultures. Repeat cultures pending and will be monitored. (4) Leukocytosis: Code(s): D72.829 - Elevated white blood cell count, unspecified Status: Acute Assessment and Plan: Secondary to cellulitis. WBC 24k at presentation with slow improvement. CBC monitored daily (5) Chronic anemia: Code(s): D64.9 - Anemia, unspecified Status: Chronic Assessment and Plan: Iron panel is consistent with anemia of chronic disease. He had a sharp decline in Hgb on 04/24 (although initial reading 7.0 felt to be erroneous). H&H is low but stable. B12 and folate wnl. H&H monitored closely IFOB ordered but patient had been unable to provide stool sample. Further workup per [facility] team. (6) Acute renal failure: Code(s): N17.9 - Acute kidney failure, unspecified Status: Acute Assessment and Plan: Creatinine elevated from baseline. Etiology is unclear at this point though I suspect patient has underlying CKD in light of uncontrolled DM. Pre-renal considered although he did not have much improvement with IV fluids. Possibly ATN from infection. Renal US unremarkable. No voiding issues. Renal function monitored closely. Further evaluation per [facility] team. Continue gentle IV fluids. Oral hypoglycmic agents and lisinopril held secondary to renal failure. (7) Diabetes mellitus: Code(s): E11.9 - Type 2 diabetes mellitus without complications Status: Chronic Assessment and Plan: A1c was 5.8 in September 2019. Bl
== END 2020-04-26 19:10 | disposition short-term general hospital (02) | DRG 603 ==
LOC: ANHED 21:15 → ANH2MED 22:30
PROVIDERS: Physician Assistant; Admitting Provider Family Medicine; Emergency Provider Emergency Medicine; PCP Internal Medicine; Visit Provider Family Medicine
DX: L03.115 Cellulitis of right lower limb (principal); I96 Gangrene, not elsewhere classified; I10 Essential (primary) hypertension; E11.51 Type 2 diabetes mellitus with diabetic peripheral angiopathy without gangrene; I73.9 Peripheral vascular disease, unspecified; D63.8 Anemia in other chronic diseases classified elsewhere; E11.22 Type 2 diabetes mellitus with diabetic chronic kidney disease; N18.9 Chronic kidney disease, unspecified; D72.829 Elevated white blood cell count, unspecified; Z89.512 Acquired absence of left leg below knee; Z87.891 Personal history of nicotine dependence
CPT/HCPCS: 36415; 73630; 76775; 80048; 80053; 82607; 82728; 82746; 83540; 83550; 83605; 85014; 85018; 85025; 85027; 85652; 86140; 87040; 87077; 87186; 93005; 96361; 96365; 96367; 99285; A9270; G0378; J1756; J1815; J2543; J3370; J7030